=== PATIENT | female | born 1980 | race Caucasian/White ===

== ENCOUNTER 2023-05-09 11:25 | Emergency (ER) | payer BC, OTHER ==
[~2023-05-09] VITALS: Ht 167.6 cm; Wt 68.0 kg
[2023-05-09 11:33] VITALS: BP 145/81; PULSE 71; RESP 16; O2SAT 99
[2023-05-09] MEDS ORDERED: KETOROLAC 30MG VIAL (30MG/ML) IM ONE (12:30)
[2023-05-09] MEDS ORDERED: IBUP-2070 PO (13:12)
== END 2023-05-09 13:48 | disposition home or self-care (01) ==
LOC: EDH 11:25
DX: S92.351A Displaced fracture of fifth metatarsal bone, right foot, initial encounter for closed fracture (principal); M79.671 Pain in right foot; M25.571 Pain in right ankle and joints of right foot; Z98.890 Other specified postprocedural states; Z88.8 Allergy status to other drugs, medicaments and biological substances; V89.2XXA Person injured in unspecified motor-vehicle accident, traffic, initial encounter; Y93.I9 Activity, other involving external motion; Y92.488 Other paved roadways as the place of occurrence of the external cause; Y99.8 Other external cause status
CPT/HCPCS: 99284; 29515; 73610; 73630; 96372; J1885